=== PATIENT | female | born 1935 | race Caucasian/White ===

== ENCOUNTER 2019-07-26 09:38 | Day surgery (SDC) | payer MEDICARE, BC ==
[2019-07-26] VITALS (7 sets, daily range): BP systolic 144–172; BP diastolic 68–84; PULSE 62–80; TEMP 98.2–98.3
[~2019-07-26] VITALS: Ht 160 cm; Wt 60.1 kg
[2019-07-26] MEDS ORDERED: PRILOTC PO (10:27)
[2019-07-26] MEDS ORDERED: SYNTHROID0.088 MG/T PO (10:27)
[2019-07-26] MEDS ORDERED: CIPRO 500MG TA500 MG PO (10:28)
[2019-07-26] MEDS ORDERED: CENTRUM SILVER1 TAB PO (10:29)
[2019-07-26] MEDS ORDERED: ASPIRIN E.C. 8181 MG PO (10:30)
[2019-07-26] MEDS ORDERED: EQUATE PM PO (10:31)
[2019-07-26] MEDS ORDERED: STOOL SOFTENER100 M2 PO (10:34)
--- NOTE | 2019-07-26 12:07 | NUR ---
VSS. PATIENT DENIES NAUSEA AND DISCOMFORT. GIVEN APPLE JUICE AND DRINKING FINE. RESTING IN CHAIR AND TALKING WITH FAMILY.
--- NOTE | 2019-07-26 12:10 | NUR ---
VSS. PATIENT DENIES NAUSEA AND DISCOMFORT. GIVEN ORANGE JELLO TO EAT. FAMILY AT BEDSIDE.
--- NOTE | 2019-07-26 12:19 | NUR ---
PATIENT TRANSPORTED PER CART TO BAY 1 ACCOMPANIED BY ENDO STAFF. PATIENT AMBULATES FROM CART TO CHAIR WITH 1 ASSIST, STEADY GAIT. MONITORS APPLIED. VSS. FAMILY AT BEDSIDE. ORAL REPORT RECEIVED.
--- NOTE | 2019-07-26 12:45 | NUR ---
Patient tolerating food and drink without difficulty. Patient states she feels ready to go home. Physician at bedside speaking with patient. Will continue to monitor.
--- NOTE | 2019-07-26 13:40 | NUR ---
Discharge instructions reviewed with patient and family. All questions answered. Patient brought down to lobby via wheel chair. To be driven home by son.
== END 2019-07-26 13:45 | disposition home or self-care (01) ==
LOC: SDCO 09:38
DX: K83.8 Other specified diseases of biliary tract (principal); R93.3 Abnormal findings on diagnostic imaging of other parts of digestive tract; E78.00 Pure hypercholesterolemia, unspecified; E03.9 Hypothyroidism, unspecified; E78.5 Hyperlipidemia, unspecified; Z88.8 Allergy status to other drugs, medicaments and biological substances; Z88.5 Allergy status to narcotic agent; Z79.82 Long term (current) use of aspirin; Z90.710 Acquired absence of both cervix and uterus; Z90.49 Acquired absence of other specified parts of digestive tract
CPT/HCPCS: C1769; J2704; J3010; Q9967